=== PATIENT | male | born 2000 | race African-American/Black ===

== ENCOUNTER 2024-11-25 21:28 | Emergency (ER) | payer OTHER, SELFPAY ==
[2024-11-25 21:30] VITALS: BP 148/91; PULSE 108; RESP 17; TEMP 36.2; O2SAT 98; BMI 29.5
--- NOTE | 2024-11-25 22:30 | EX.ED.DYSGE1 ---
HPI History of Present Illness Chief Complaint: Nausea/Vomiting Informant: patient and spouse/S.O. Narrative Narrative: Presents abdominal pain nausea and vomiting. Symptoms started 2 days ago reported after the [employer] supper. Throughout yesterday's dry heaving today vomited 5 times with no hematemesis. No diarrhea. Pain of 2 and 8. No abdominal surgeries. No past med history. Occasional alcohol he states occasional marijuana. He states he did smoke marijuana Tuesday. Has not had issues with this in the past. No allergies to any medications. He is taking normal showers has not done any hot showers. Prior similar symptoms: No PFSH PFSH Medical History no medical history Home Medications ?Medication ?Instructions ?Recorded ?Last Taken ?Type epinephrine .ROUTE 11/25/24 Unknown History ondansetron 4 mg disintegrating 4 mg PO Q8H PRN PRN Nausea #10 tabs 11/26/24 Unknown Rx tablet Allergy/AdvReac Type Severity Reaction Status Date / Time nut - unspecified (nuts) Allergy Anaphylaxis Verified 11/25/24 21:29 Social History Smoking Status: Never smoker ROS ROS ED Constitutional Constitutional ED: Denies chills, fever(s) or sweats ENT ENT ED: Denies sore throat Cardiovascular Cardiovascular: Denies chest pain, leg edema, palpitations or racing heartbeat Respiratory/Chest Respiratory/Chest: Denies cough, dyspnea or dyspnea on exertion Gastrointestinal Gastrointestinal: Reports abdominal pain, nausea and vomiting; Denies diarrhea Genitourinary Genitourinary ED: Denies dysuria, hematuria or urinary frequency Musculoskeletal Musculoskeletal: Denies back pain, extremity pain or neck pain Integumentary Denies rash or wounds Neurologic Neurologic: Denies headache(s), paresthesias or weakness EXAM Physical Exam Const Vital Signs: 11/25/24 21:30 11/26/24 00:17 Temperature 97.2 F L Temperature Source Oral Pulse Rate 108 H 76 Respiratory Rate 17 18 Blood Pressure 148/91 H 125/78 H Blood Pressure Mean 110 93 Pulse Ox 98 99 Oxygen Delivery Method Room Air Room Air Positive well nourished and well developed General Appearance ED: well developed and NAD HEENT Reports moist mucous membranes normocephalic and atraumatic Eyes General Eye ED: Yes normal appearance of both eyes Neck full ROM Chest Wall Chest: Negative for tenderness Resp normal respiratory effort and normal air movement Effort and Inspection: symmetric chest movement; Negative for respiratory distress Cardio regular rhythm and no murmurs Rate: tachycardic Peripheral Pulses: pulses 2+ throughout GI normal to inspection, nondistended, normoactive bowel sounds and non-tender GI Narrative: Negative Donovan's or McBurney's tenderness. Palpation: Negative for guarding or rebound tenderness present Extremity normal to inspection General Extremety ED: Negative for edema or tenderness General Extremity: Negative for edema Neuro oriented x3 and no sensory deficits noted Sensorium / Orientation: awake and alert Skin no rashes or lesions noted and no wounds MDM MDM MDM Narrative Medical decision making narrative: Interventions / MDM: Differential diagnosis: Abdominal pain, nausea vomiting, marijuana history Diagnosis considered but do not suspect: N/A My EKG interpretation: N/A Imaging independently reviewed and interpreted by myself: N/A External documents reviewed: N/A Test considered but not ordered:N/A ED course: Slight tachycardia on arrival nontoxic nonsurgical abdomen. New symptoms of pain nausea vomiting. Will check abdominal labs fluids Zofran. Will try capsaicin cream with his marijuana use. Will reevaluate. 0014: Pain and symptoms currently improved labs are all normal. Will p.o. challenge. No difficulty with oral challenge. Prescription for Zofran to use as needed. Topical capsaicin sent home with the patient. He will continue oral fluids for hydration. All questions were answered. Re-evaluation: stable Disposition discussed with patient/family/significant other: Patient with significant other Case discussed with consulting clinician: N/A This note was generated with [employer] dictation software. It may contain incorrect words, spelling, and punctuation that were not noted in checking the note before signing. Lab Data Attestation: I reviewed the patient's lab results. Labs: Laboratory Results - last 24 hr 11/25/24 23:00 WBC 10.2 RBC 5.88 Hgb 15.9 Hct 48.1 MCV 81.8 MCH 27.0 MCHC 33.1 RDW Std Deviation 36.5 RDW Coeff of Omar 12.1 Plt Count 259 MPV 9.6 Immature Gran % (Auto) 0.200 Neut % (Auto) 76.9 H Lymph % (Auto) 16.2 L Robeson % (Auto) 6.5 Eos % (Auto) 0.1 Baso % (Auto) 0.1 Absolute Neuts (auto) 7.8 H Absolute Lymphs (auto) 1.65 Nucleated RBC % 0 Sodium 138 Potassium 3.9 Chloride 100 Carbon Dioxide 25.1 Anion Gap 13 BUN 12 Creatinine 1.12 Estim Creat Clear Calc 143.06 Est GFR (MDRD) Non-Af 95 BUN/Creatinine Ratio 10.3 Glucose 89 Calcium 9.9 Total Bilirubin 0.63 AST 32 ALT 39 Alkaline Phosphatase 51 Total Protein 8.0 Albumin 4.6 Globulin 3.5 Albumin/Globulin Ratio 1.3 Lipase 23 Discharge Plan Triage Chief Complaint: Nausea/Vomiting ED Provider: Josh Bennett Dx/Rx/DC Orders Clinical Impression: Vomiting, Abdominal pain, History of marijuana use Instructions: Understanding Marijuana Abuse, ED Vomiting (Adult) Prescriptions: New ondansetron 4 mg tablet,disintegrating 4 mg PO Q8H PRN PRN (Reason: Nausea) Qty: 10 0RF No Action epinephrine [Epi E-Z Pen] .ROUTE Primary Care Provider: JITENDRA SANDOVAL Referrals: JITENDRA SANDOVAL [Other] - 1-2 Weeks [facility] Doctor,Out of [Non-Staff] - Activity Restrictions/Additional Instructions: Labs normal. Continue oral fluids for hydration. Use Zofran as needed. May use the capsaicin application as needed every 6 hours. Avoid marijuana use as this can be part of the cause of your symptoms. Print Language: Kosovan Disposition Disposition: Home, Self Care Discharge Date/Time: 11/26/24 00:34
[2024-11-25] MEDS: Capsaicin 0.025% 1 APPLIC Tube TOPICAL (22:59)
[2024-11-25] MEDS: 0.9% Normal Saline (1000mL) 1,000 ML 999 ML IV (22:59)
[2024-11-25] MEDS: Ondansetron 4 MG/2 ML Vial IV (22:59)
[2024-11-25 23:08] LABS: Absolute Lymphocyte Count 1.65 X10^3/uL (0.83-4.51); Absolute Neutrophil Count 7.8 X10^3/uL (2.0-7.7); Basophil# 0.01 X10^3/uL; Basophil% 0.1 % (0-1); Eosinophil# 0.01 X10^3/uL; Eosinophils% 0.1 % (0-5); Hematocrit 48.1 % (40-54); Hemoglobin 15.9 g/dL (13.0-16.5); Lymphocyte # 1.65 X10^3/ul (0.83-4.51); Lymphocyte % 16.2 % (19-41); Mean Corp Hgb Conc 33.1 g/dL (32-36); Mean Corpuscular Volume 81.8 fL (80-94); Mean Platelet Vol. 9.6 fl (6.2-12.0); Monocyte# 0.66 X10^3/uL; Monocyte% 6.5 % (0-10); NRBC Flagged by Analyzer 0 % (0-5); Neutrophil # 7.84 X10^3/uL (2.7-7.7); Neutrophil % 76.9 % (47-70); Platelet Count 259 K/mm3 (150-450); RBC Distribution Width CV 12.1 % (11.6-14.6); RBC Distribution Width SD 36.5 fl (35.1-43.9); Red Blood Count 5.88 M/mm3 (4.6-6.2); White Blood Count 10.2 K/mm3 (4.4-11.0)
[2024-11-25 23:37] LABS: ALB/GLOB Ratio 1.3 RATIO (0.9-2.4); AST(SGOT) 32 U/L (<=37); Alanine Aminotransfer ALT/SGPT 39 U/L (<=46); Albumin, Serum 4.6 g/dL (3.5-5.0); Alkaline Phosphatase 51 U/L (40-129); Anion Gap 13 (5-15); BUN 12 mg/dL (4-19); BUN/Creat Ratio 10.3 RATIO (10-20); Calcium,Total 9.9 mg/dL (7.6-11.0); Carbon Dioxide 25.1 mmol/L (21.0-32.0); Chloride 100 mmol/L (98-108); Creatinine, Serum 1.12 mg/dL (0.70-1.20); EST Glomerular Filtration Rate 95 (>60); Estimated Creatinine Clearance 143.06 ml/min (50-250); Globulin 3.5 g/dL (2.2-4.2); Glucose 89 mg/dL (70-99); Lipase 23 U/L (13-75); Potassium 3.9 mmol/L (3.3-5.1); Sodium Level 138 mmol/L (133-145); Total Bilirubin 0.63 mg/dL (0.00-1.30)
[2024-11-26 00:17] VITALS: BP 125/78; PULSE 76; RESP 18; O2SAT 99
== END 2024-11-26 00:34 | disposition home or self-care (01) ==
PROVIDERS: Emergency Provider Emergency Medicine; Visit Provider Emergency Medicine
DX: R11.2 Nausea with vomiting, unspecified (principal); R10.9 Unspecified abdominal pain
CPT/HCPCS: 80053; 83690; 85025; 96361; 96374; 96376; 99284; A4216; J2405